=== PATIENT | female | born 1945 | race Caucasian/White ===

== ENCOUNTER 2018-06-02 07:46 | Outpatient (CLI) | payer MEDICARE, OTHER ==
--- NOTE | 2018-06-02 14:22 | MRI ---
MRI CERVICAL SPINE WITHOUT IV CONTRAST: HISTORY: A 73-year-old female with a history of cervical radiculopathy, M54.12. The patient is having right a rm numbness and tingling. FINDINGS: There are some generalized disk desiccation changes and ligament and facet hypertrophic changes. At C2-C3, there is no evidence for associated stenosis. At C3-C4, there is mild left foraminal stenosis without central canal or lateral recess stenosis. At C4-C5, very mild left foraminal stenosis without central canal or lateral recess stenosis. At C5-C6, there is disk osteophytosis with mild lateral recess stenosis and bilateral foraminal steno sis, slightly worse on the right side. At C6-C7, there is a right paracentral protrusion, with some thinning of the lateral recesses bilater ally, worse on the right side, and mild to moderate right foraminal stenosis. At C7-T1, no significant central canal or foraminal stenosis. At C5-C6, there are some type I endplate changes. No spinal cord mass or spinal cord compression. IMPRESSION: 1. Multilevel variable severity foraminal and lateral recess stenosis. 2. No spinal cord mass or spinal cord compression. 3. Type I endplate changes at C5-C6. POS: [facility]
== END 2018-06-02 07:47 | disposition home or self-care (01) ==
LOC: SCSMRI 07:46
PROVIDERS: ATTEND Neurological Surgery
DX: M54.12 Radiculopathy, cervical region (principal); M99.81 Other biomechanical lesions of cervical region
CPT/HCPCS: 72141

== ENCOUNTER 2019-04-20 06:46 | Outpatient (CLI) | payer MEDICARE, OTHER ==
[2019-04-20 10:57] LABS: Hemoglobin 14.5 g/dL (12.0-16.0); Mean Corpuscular HGB CONC 33.4 g/dL (32.0-36.0); Mean Corpuscular Hemoglobin 30.3 pg (27.0-31.0); Mean Corpuscular Volume 90.6 fL (78.0-98.0); Mean Platelet Volume 6.9 fL (7.4-10.4); Platelet Count 252 thou/uL (130-400); RBC Distribution Width 12.5 % (11.5-14.5); Red Blood Cell (RBC) Count 4.79 mill/uL (4.20-5.40); White Blood Cell (WBC) Count 8.6 thou/uL (4.8-10.8)
[2019-04-20 11:24] LABS: Anion Gap 13 mmol/L (10-20); BUN (Urea Nitrogen) 15 mg/dL (9.8-20.1); Calc. Creatinine Clearance 0 mL/min (70-130); Calcium 9.2 mg/dL (7.8-10.44); Carbon Dioxide 26 mmol/L (23-31); Chloride 105 mmol/L (98-107); Estimated GFR-MDRD 59; Glucose 99 mg/dL (83-110); Potassium 4.1 mmol/L (3.5-5.1); Sodium 140 mmol/L (136-145)
== END 2019-04-20 06:47 | disposition home or self-care (01) ==
LOC: LABBT 06:46
PROVIDERS: ATTEND Neurological Surgery
DX: Z01.818 Encounter for other preprocedural examination (principal); M54.12 Radiculopathy, cervical region
CPT/HCPCS: 80048; 85027; 93005; 93010

== ENCOUNTER 2019-05-12 08:54 | Day surgery (SDC) | payer MEDICARE, OTHER ==
[2019-04-20 10:11] VITALS: BMI 28.3
--- NOTE | 2019-05-11 09:17 | HP ---
HISTORY OF PRESENT ILLNESS: Ms. Davidson is known to us for a distant evaluation of the lumbar back problems, who returns now for roughly 1 year worth of right upper extremity C6 pains with an MRI from [place] that reveals narrowing of foraminal stenosis of C5-C6 that would match her symptoms well. She also has significant deltoid pains posterior arm and triceps pains that would match well with what appears to be some narrowing of C7 in addition. She has treated this with physical therapy as well as injections, but the pain continues to return and worsen to a point where she would like to discuss possible surgery. PAST MEDICAL HISTORY: Significant for hypercholesterolemia, migraine headaches, coronary arterial disease, hypertension, osteoarthritis. CURRENT MEDICATIONS: 1. Atenolol. 2. Lisinopril. 3. Plavix. 4. Simvastatin. 5. Niacin. ALLERGIES: NO KNOWN DRUG ALLERGIES. PAST SURGICAL HISTORY: Cardiac bypass x3 in 2007. PHYSICAL EXAMINATION: GENERAL: The patient is alert and oriented x3. EXTREMITIES: Gait is normal. No ataxia. Bilateral upper extremity exam is normal. She does have a positive Spurling maneuver to the right. ASSESSMENT: Cervical radiculopathy. PLAN: Dr. Guerrero met with the patient, reviewed imaging and advocated for a C5 to C7 ACDF. He explained to the patient the risks, benefits, and alternatives to the procedure. The patient expressed understanding and elected to move forward with surgery as discussed. I do believe the patient is mentally competent and capable of making medical decisions for herself. We will move forward with surgery as planned. Job ID: [id number]
[2019-05-12] MEDS ORDERED: Thrombin 5000 UNITS/5 ML VIAL ONE (09:13)
[2019-05-12] MEDS ORDERED: Midazolam HCl 2 mg/2 ml Vial ONE (09:31)
[2019-05-12] MEDS ORDERED: Fentanyl 100 MCG/2 ML VIAL ONE ×2 (09:46→11:43)
[2019-05-12] MEDS ORDERED: Morphine 2 MG/ML SYRINGE ONE (13:13)
[2019-05-12] MEDS ORDERED: Acetaminophen/Codeine 30-300mg Tablet ONE (13:57)
--- NOTE | 2019-05-13 13:24 | OP ---
DATE OF PROCEDURE: 05/12/2019 RECREATION TEACHER: Vince Montgomery PA-C INDICATION: Pain. DIAGNOSIS: Cervical radiculopathy. PROCEDURE PERFORMED: Anterior cervical diskectomy and fusion spanning C5 to C7. DESCRIPTION OF PROCEDURE: The patient was brought into the operating room and placed under general anesthesia. She was placed on table in the supine position. A transverse incision was planned over the lateral aspect of the neck on the right. After prepping and draping and after an appropriate perioperative pause, the incision was created. The underlying platysma muscle was identified and incised. A blunt tissue plane anterior to the sternocleidomastoid muscle was used to gain access to the prevertebral space. Self-retaining retractors were placed in the wound for optimal exposure. After confirming the appropriate level with C-arm fluoroscopy, an annulotomy was performed in the C6-C7 disk space, where all disk material was removed including anterior and posterior osteophytes in order to decompress the exiting nerve root. The 7-mm lordotic PEEK cage packed with allograft and autograft material was then placed within the interbody space. We then redirected our attention to the level above at C5-C6, where again an annulotomy was performed. All disk material as well as anterior and posterior osteophytes were removed. After complete decompression, a 6-mm lordotic PEEK cage packed with allograft and autograft material was placed within the interbody space. An anterior cervical plate was then fashioned to the front of spine and secured with a total of 6 screws. Midline and lateral structures were inspected and found to be free from significant trauma. The wound was irrigated. Hemostasis was maintained throughout. The wound was then closed in anatomic layers and a pressure dressing was applied. There were no known procedural complications. Job ID: [id number]
== END 2019-05-12 15:02 | disposition home or self-care (01) ==
LOC: SDC 08:54
PROVIDERS: ATTEND Neurological Surgery
PROC: 0RG2070 Fusion of 2 or more Cervical Vertebral Joints with Autologous Tissue Substitute, Anterior Approach, Anterior Column, Open Approach (ICD-10-PCS; principal; 2019-05-12)
PROC: 0RG20A0 Fusion of 2 or more Cervical Vertebral Joints with Interbody Fusion Device, Anterior Approach, Anterior Column, Open Approach (ICD-10-PCS; 2019-05-12)
PROC: 0RT30ZZ Resection of Cervical Vertebral Disc, Open Approach (ICD-10-PCS; 2019-05-12)
DX: M54.12 Radiculopathy, cervical region (principal); I10 Essential (primary) hypertension; I25.10 Atherosclerotic heart disease of native coronary artery without angina pectoris; E78.5 Hyperlipidemia, unspecified; Z79.899 Other long term (current) drug therapy; Z87.891 Personal history of nicotine dependence; Z95.1 Presence of aortocoronary bypass graft
CPT/HCPCS: 20930; 20936; 22551; 22552; 22845; 22853 ×2; 76000; C1713 ×2; C1776; J0690; J2250; J2270; J3010

== ENCOUNTER 2022-11-19 09:58 | Outpatient (CLI) | payer MEDICARE, OTHER ==
[2022-11-19 11:18] LABS: Hemoglobin 13.7 g/dL (12.0-15.5); Mean Corpuscular HGB CONC 33.1 g/dL (32.0-36.0); Mean Corpuscular Hemoglobin 29.3 pg (27.0-33.0); Mean Corpuscular Volume 88.7 fl (81.6-98.3); Mean Platelet Volume 10.1 fl (7.4-10.4); Platelet Count 252 10x3/uL (150-450); RBC Distribution Width 13.6 % (11.5-14.5); Red Blood Cell (RBC) Count 4.67 10x6/uL (3.90-5.03); White Blood Cell (WBC) Count 6.9 10x3/uL (3.5-10.5)
[2022-11-19 11:25] LABS: Anion Gap 14 mmol/L (10-20); BUN (Urea Nitrogen) 16 mg/dL (9.8-20.1); Calc. Creatinine Clearance 0 mL/min (70-130); Calcium 9.1 mg/dL (7.8-10.44); Carbon Dioxide 25 mmol/L (23-31); Chloride 103 mmol/L (98-107); Estimated GFR 74; Glucose 99 mg/dL (83-110); Potassium 4.4 mmol/L (3.5-5.1); Sodium 138 mmol/L (136-145)
== END 2022-11-19 09:59 | disposition home or self-care (01) ==
LOC: LABBT 09:58
PROVIDERS: ATTEND Neurological Surgery
DX: Z01.812 Encounter for preprocedural laboratory examination (principal); M51.16 Intervertebral disc disorders with radiculopathy, lumbar region
CPT/HCPCS: 80048; 85027

== ENCOUNTER 2022-11-22 05:37 | Day surgery (SDC) | payer MEDICARE, OTHER ==
[2022-11-19 11:07] VITALS: BMI 27.4
[2022-11-22] MEDS ORDERED: Bupivacaine HCl 0.5%/Epinephrine 1:200,000/PF 30 ml Vial ONE (06:12)
[2022-11-22] MEDS ORDERED: Thrombin 5000 UNITS/5 ML VIAL ONE (06:12)
[2022-11-22] MEDS ORDERED: fentaNYL 50 mcg/mL 1 mL Vial ONE ×2 (06:20→08:51)
[2022-11-22] MEDS ORDERED: HYDROmorphone 0.5 MG/0.5 ML SYRINGE ONE (06:20)
[2022-11-22] MEDS ORDERED: Sodium Chloride 0.9% 100 ML ONE ×2 (06:47→11:08)
[2022-11-22] MEDS ORDERED: CEFAZOLIN 2 GM VIAL ONE ×2 (06:47→11:08)
[2022-11-22] MEDS ORDERED: Glycopyrrolate 0.2 MG/ML 5 ML SYRINGE ONE (07:10)
[2022-11-22] MEDS ORDERED: PROPOFOL 200 MG/20 ML VIAL ONE (07:10)
[2022-11-22] MEDS ORDERED: NEOSTIGMINE 3 MG/3 ML SYR 3 MG/3 ML SYRINGE ONE (07:10)
[2022-11-22] MEDS ORDERED: ePHEDrine Sulfate 50 MG/10 ML VIAL ONE (07:10)
[2022-11-22] MEDS ORDERED: Rocuronium Bromide 10 MG/ML (10ML VIAL) ONE (07:10)
[2022-11-22] MEDS ORDERED: Lidocaine 1% PF 5 ML VIAL ONE (07:10)
[2022-11-22] MEDS ORDERED: PHENYLEPHRINE-NS 100 MCG/ML 10 ML SYRINGE ONE (07:10)
[2022-11-22] MEDS ORDERED: HYDROcodone/Acetaminophen 5/325 mg Tablet ONE (11:29)
== END 2022-11-22 11:45 | disposition home or self-care (01) ==
LOC: SDC 05:37
PROVIDERS: ATTEND Neurological Surgery
PROC: 0SB20ZZ Excision of Lumbar Vertebral Disc, Open Approach (ICD-10-PCS; principal; 2022-11-22)
PROC: 01NB0ZZ Release Lumbar Nerve, Open Approach (ICD-10-PCS; 2022-11-22)
DX: M51.16 Intervertebral disc disorders with radiculopathy, lumbar region (principal); M48.062 Spinal stenosis, lumbar region with neurogenic claudication; E78.5 Hyperlipidemia, unspecified; I11.9 Hypertensive heart disease without heart failure; F17.200 Nicotine dependence, unspecified, uncomplicated; Z79.01 Long term (current) use of anticoagulants; Z79.82 Long term (current) use of aspirin; Z79.899 Other long term (current) drug therapy; Z88.2 Allergy status to sulfonamides; Z88.4 Allergy status to anesthetic agent; Z88.8 Allergy status to other drugs, medicaments and biological substances; Z95.1 Presence of aortocoronary bypass graft; Z98.1 Arthrodesis status
CPT/HCPCS: 63047; J3010; J1170; J2704; J3490